=== PATIENT | female | born 1935 | race Caucasian/White ===

== ENCOUNTER 2017-04-22 20:50 | Inpatient (IN) | payer MEDICARE, BC ==
[~2017-04-22] VITALS: Ht 154.9 cm; Wt 51.7 kg
[~2017-04-22 20:50] MED LIST: ASPI81TA31 PO; ATOR80TA PO; CHOL200026 PO; HYDR-3974 PO; HYDR-4209 PO; LEVE750T4 PO; LISI-607 PO; LORA-588 PO; MELA3TAB PO; MULT1TAB11 PO; PROP15DR OP
[2017-04-22 21:16] LABS: BASOPHILS % (AUTO) 0.7 % (0.0-2.0); EOSINOPHILS % (AUTO) 0.8 % (0.0-7.0); HEMATOCRIT 37.8 % (31.2-41.9); HEMOGLOBIN 12.7 g/dL (10.9-14.3); LYMPHOCYTES # (AUTO) 2.9 K/uL (20.0-40.0); LYMPHOCYTES % (AUTO) 48.6 % (20.5-51.5); MEAN CORPUSCULAR HEMOGLOBIN 32.1 uug (24.7-32.8); MEAN CORPUSCULAR HGB CONC 34 g/dL (32.3-35.6); MEAN CORPUSCULAR VOLUME 95.8 fL (75.5-95.3); MONOCYTES # (AUTO) 0.5 K/uL (2.0-10.0); MONOCYTES % (AUTO) 9.1 % (0.0-11.0); NEUTROPHILS # (AUTO) 2.4 K/uL (1.8-8.9); NEUTROPHILS % (AUTO) 40.8 % (38.5-71.5); PLATELET COUNT (AUTO) 133 K/uL (179-408); RED BLOOD CELL COUNT(AUTO) 3.95 MIL/uL (3.63-4.92)
[2017-04-22 21:25] LABS: CARBON DIOXIDE 28 mmol/L (21-32); CHLORIDE 103 mmol/L (98-107); CREATININE 0.9 mg/dL (0.6-1.3); GLUCOSE 96 mg/dL (74-106); POTASSIUM 3.7 mmol/L (3.5-5.1); UREA NITROGEN, BLOOD 13 mg/dL (7-18)
[2017-04-22 21:33] LABS: ETHANOL < 3 MG/DL (0-0)
[2017-04-22] MEDS ORDERED: VENL150C2 PO (21:36)
[2017-04-22] MEDS ORDERED: DIVA250T47 PO (21:36)
[2017-04-22] MEDS ORDERED: ACET325T53 PO (21:36)
[2017-04-22] MEDS ORDERED: MAG355OR18 PO (21:36)
[2017-04-22] MEDS ORDERED: DEXT15DR6 OP (21:36)
[2017-04-22] MEDS ORDERED: BISA10SU8 RC (21:36)
[2017-04-22] MEDS ORDERED: MAGN400O6 PO (21:36)
[2017-04-22] MEDS ORDERED: DOCU-141 PO (21:36)
[2017-04-22] MEDS ORDERED: SENN-167 PO (21:36)
[2017-04-22] MEDS ORDERED: LORA-258 PO (21:36)
[2017-04-22] MEDS ORDERED: MEMA10TA PO (21:36)
[2017-04-22] MEDS ORDERED: POLY17PO4 PO (21:36)
[2017-04-22 21:42] LABS: ACETAMINOPHEN < 2.0 ug/mL (10-30); ALANINE AMINOTRANSFERASE 19 U/L (14-59); ALKALINE PHOSPHATASE 71 U/L (50-136); ASPARTATE AMINOTRANSFERASE 15 U/L (15-37); BILIRUBIN,DIRECT 0.1 mg/dL (0.0-0.2); BILIRUBIN,TOTAL 0.4 mg/dL (0.2-1.0); TOTAL PROTEIN, SERUM 6.6 g/dL (6.4-8.2)
[2017-04-22 21:51] LABS: *BILIRUBIN,URIN NEGATIVE (NEGATIVE); *BLOOD, URINE NEGATIVE (NEGATIVE); *CLARITY,URINE CLEAR (CLEAR); *COLOR,URINE YELLOW (YELLOW); *KETONES,URINE NEGATIVE (NEGATIVE); *PROTEIN,URINE NEGATIVE (NEGATIVE); *UROBILINOGEN,URINE 0.2 E.U./dl (NORMAL); LEUKOCYTE ESTERASE ,URINE NEGATIVE (NEGATIVE); NITRITE, URINE NEGATIVE (NEGATIVE); PH,URINE 8.5 (5.0-8.0); UGLUCOSE NEGATIVE (NEGATIVE)
[2017-04-22 21:57] LABS: THYROID STIMULATING HORMONE 5.919 mIU/mL (0.358-3.740)
[2017-04-22 21:58] LABS: RBC,URINE 0-3 /HPF (0-3); SQUAMOUS EPITHELIAL CELL,UR FEW /HPF (NONE SEEN); WBC,URINE 0-3 /HPF (0-3)
[2017-04-22 22:04] LABS: *AMPHETAMINE, URINE NEGATIVE (NEGATIVE); *BARBITURATE, URINE NEGATIVE (NEGATIVE); *CANNABINOID, URINE NEGATIVE (NEGATIVE); *COCCAINE, URINE NEGATIVE (NEGATIVE); *OPIATE, URINE NEGATIVE (NEGATIVE); *PHENCYCLIDINE SCREEN,URINE NEGATIVE (NEGATIVE)
[2017-04-22 22:52] VITALS: BP 141/73
[2017-04-22] MEDS ORDERED: MAGNESIUM HYDROXIDE 30 ML LIQUID UDC PO PRN (23:00)
[2017-04-22] MEDS ORDERED: MAG HYDROX/AL HYDROX/SIMETH 30 ML LIQUID UDC PO PRN (23:00)
[2017-04-23 01:48] VITALS: BP 141/73
[2017-04-23 07:30] VITALS: BP 145/82
[2017-04-23] MEDS: LORAZEPAM 0.5 MG TABLET PO PRN (10:46)
[2017-04-23] MEDS: ESCITALOPRAM OXALATE 10 MG TABLET PO SCH (15:33)
[2017-04-23] MEDS ORDERED: Medication Not On Formulary EA (Loratadine 10 MG) PO PRN (16:15)
[2017-04-23] MEDS ORDERED: ACETAMINOPHEN 325 MG TABLET PO PRN (16:15)
[2017-04-23] MEDS ORDERED: MAG HYDROX/AL HYDROX/SIMETH 30 ML LIQUID UDC PO PRN (16:15)
[2017-04-23] MEDS ORDERED: MAGNESIUM HYDROXIDE 30 ML LIQUID UDC PO PRN (16:15)
[2017-04-23] MEDS ORDERED: BISACODYL 10 MG SUPP.RECT RC PRN (16:15)
[2017-04-23 16:17] VITALS: BP 140/75
[2017-04-23] MEDS: VENLAFAXINE XR 37.5 MG CAP.SR.24H PO SCH (16:53)
[2017-04-23] MEDS: busPIRone 5 MG TABLET PO SCH (16:53)
[2017-04-23] MEDS: BENZTROPINE MESYLATE 0.5 MG TABLET PO SCH (16:54)
[2017-04-23] MEDS ORDERED: LORATADINE 10 MG TABLET PO PRN (17:30)
[2017-04-23] MEDS: DOCUSATE SODIUM 100 MG CAPSULE PO SCH (17:37)
[2017-04-23] MEDS: SENNOSIDES 1 TABLET PO SCH (17:37)
[2017-04-23] MEDS: ARIPIPRAZOLE 2 MG TABLET PO SCH (20:41)
[2017-04-23] MEDS: ATORVASTATIN 40 MG TABLET PO SCH (20:42)
[2017-04-23] MEDS ORDERED: Medication Not On Formulary EA (Atorvastatin Calcium (Lipitor) 80 MG) PO SCH (21:00)
[2017-04-23 21:09] VITALS: BP 113/52
[2017-04-24] MEDS: BENZTROPINE MESYLATE 0.5 MG TABLET PO SCH ×2 (08:08→16:16)
[2017-04-24] MEDS: busPIRone 5 MG TABLET PO SCH ×4 (08:08→16:16)
[2017-04-24] MEDS: DOCUSATE SODIUM 100 MG CAPSULE PO SCH ×2 (08:08→16:16)
[2017-04-24] MEDS: CHOLECALCIFEROL 1,000 UNIT TABLET PO SCH (08:08)
[2017-04-24] MEDS: LISINOPRIL 5 MG TABLET PO SCH (08:09)
[2017-04-24] MEDS: MIRALAX 17 GM POWD.PACK PO SCH (08:09)
[2017-04-24] MEDS: ESCITALOPRAM OXALATE 10 MG TABLET PO SCH (08:09)
[2017-04-24] MEDS: POLYVINYL ALCOHOL OPHT DROPS 15 ML BOTTLE EACHEYE SCH ×2 (08:09→16:16)
[2017-04-24] MEDS: VENLAFAXINE XR 37.5 MG CAP.SR.24H PO SCH (08:09)
[2017-04-24] MEDS: MULTIVIT, IRON, MIN NO. 8, FA TABLET PO SCH (08:09)
[2017-04-24] MEDS: SENNOSIDES 1 TABLET PO SCH ×2 (08:09→16:16)
[2017-04-24] MEDS ORDERED: Medication Not On Formulary EA (Cholecalciferol (Vitamin D3) (Vitamin D3 TAB) 2,000 UNIT PO SCH (09:00)
[2017-04-24] MEDS ORDERED: Medication Not On Formulary EA (Multivitamins W-Minerals (Multivitamin With Minerals) 1 PO SCH (09:00)
[2017-04-24] MEDS: LORAZEPAM 0.5 MG TABLET PO PRN (13:45)
[2017-04-24] MEDS: HYDROCODONE/APAP 5-325MG TABLET PO PRN (14:36)
[2017-04-24] MEDS: ATORVASTATIN 40 MG TABLET PO SCH (20:02)
[2017-04-24] MEDS: ARIPIPRAZOLE 2 MG TABLET PO SCH (20:02)
[2017-04-24 21:50] VITALS: BP 129/67
[2017-04-25 07:30] VITALS: BP 172/69
[2017-04-25] MEDS: DOCUSATE SODIUM 100 MG CAPSULE PO SCH ×2 (08:37→17:03)
[2017-04-25] MEDS: CHOLECALCIFEROL 1,000 UNIT TABLET PO SCH (08:37)
[2017-04-25] MEDS: VENLAFAXINE XR 37.5 MG CAP.SR.24H PO SCH (08:38)
[2017-04-25] MEDS: MULTIVIT, IRON, MIN NO. 8, FA TABLET PO SCH (08:38)
[2017-04-25] MEDS: LISINOPRIL 5 MG TABLET PO SCH (08:38)
[2017-04-25] MEDS: SENNOSIDES 1 TABLET PO SCH ×2 (08:38→17:03)
[2017-04-25] MEDS: ESCITALOPRAM OXALATE 10 MG TABLET PO SCH (08:38)
[2017-04-25] MEDS: BENZTROPINE MESYLATE 0.5 MG TABLET PO SCH ×2 (08:38→17:03)
[2017-04-25] MEDS: busPIRone 5 MG TABLET PO SCH ×3 (08:38→17:02)
[2017-04-25] MEDS: POLYVINYL ALCOHOL OPHT DROPS 15 ML BOTTLE EACHEYE SCH ×2 (08:39→17:00)
[2017-04-25] MEDS: MIRALAX 17 GM POWD.PACK PO SCH (08:40)
[2017-04-25 15:00] VITALS: BP 150/65
[2017-04-25] MEDS: LORAZEPAM 0.5 MG TABLET PO PRN (16:48)
[2017-04-25] MEDS: ACETAMINOPHEN 325 MG TABLET PO PRN (17:03)
[2017-04-25] MEDS: ATORVASTATIN 40 MG TABLET PO SCH (20:08)
[2017-04-25] MEDS: ARIPIPRAZOLE 2 MG TABLET PO SCH (20:08)
[2017-04-25 20:13] VITALS: BP 132/67
[2017-04-26 07:30] VITALS: BP 135/56
[2017-04-26] MEDS: VENLAFAXINE XR 37.5 MG CAP.SR.24H PO SCH (08:13)
[2017-04-26] MEDS: LISINOPRIL 5 MG TABLET PO SCH (08:14)
[2017-04-26] MEDS: SENNOSIDES 1 TABLET PO SCH ×2 (08:14→17:12)
[2017-04-26] MEDS: CHOLECALCIFEROL 1,000 UNIT TABLET PO SCH (08:14)
[2017-04-26] MEDS: MULTIVIT, IRON, MIN NO. 8, FA TABLET PO SCH (08:14)
[2017-04-26] MEDS: ESCITALOPRAM OXALATE 10 MG TABLET PO SCH (08:14)
[2017-04-26] MEDS: DOCUSATE SODIUM 100 MG CAPSULE PO SCH ×2 (08:14→17:13)
[2017-04-26] MEDS: busPIRone 5 MG TABLET PO SCH ×3 (08:14→17:12)
[2017-04-26] MEDS: BENZTROPINE MESYLATE 0.5 MG TABLET PO SCH ×2 (08:14→17:13)
[2017-04-26] MEDS: POLYVINYL ALCOHOL OPHT DROPS 15 ML BOTTLE EACHEYE SCH ×2 (08:15→17:13)
[2017-04-26] MEDS: MIRALAX 17 GM POWD.PACK PO SCH (08:15)
[2017-04-26] MEDS: LORAZEPAM 0.5 MG TABLET PO PRN ×2 (12:15→20:27)
[2017-04-26 16:24] VITALS: BP 143/54
[2017-04-26] MEDS: ACETAMINOPHEN 325 MG TABLET PO PRN (17:12)
[2017-04-26] MEDS: ARIPIPRAZOLE 2 MG TABLET PO SCH (20:27)
[2017-04-26] MEDS: ATORVASTATIN 40 MG TABLET PO SCH (20:27)
[2017-04-26 20:48] VITALS: BP 147/58
[2017-04-27] MEDS: TEMAZEPAM 7.5 MG CAPSULE PO PRN (00:36)
[2017-04-27 07:30] VITALS: BP 161/62
[2017-04-27] MEDS: VENLAFAXINE XR 37.5 MG CAP.SR.24H PO SCH (08:49)
[2017-04-27] MEDS: DOCUSATE SODIUM 100 MG CAPSULE PO SCH ×2 (08:49→17:15)
[2017-04-27] MEDS: BENZTROPINE MESYLATE 0.5 MG TABLET PO SCH ×2 (08:50→17:15)
[2017-04-27] MEDS: MULTIVIT, IRON, MIN NO. 8, FA TABLET PO SCH (08:50)
[2017-04-27] MEDS: MIRALAX 17 GM POWD.PACK PO SCH (08:50)
[2017-04-27] MEDS: busPIRone 5 MG TABLET PO SCH ×3 (08:50→17:15)
[2017-04-27] MEDS: SENNOSIDES 1 TABLET PO SCH ×2 (08:50→17:15)
[2017-04-27] MEDS: CHOLECALCIFEROL 1,000 UNIT TABLET PO SCH (08:50)
[2017-04-27] MEDS: LISINOPRIL 5 MG TABLET PO SCH (08:50)
[2017-04-27] MEDS: ESCITALOPRAM OXALATE 10 MG TABLET PO SCH (08:50)
[2017-04-27] MEDS: POLYVINYL ALCOHOL OPHT DROPS 15 ML BOTTLE EACHEYE SCH ×2 (08:51→17:15)
[2017-04-27] MEDS: LORAZEPAM 0.5 MG TABLET PO PRN (12:55)
[2017-04-27 17:02] VITALS: BP 130/65
[2017-04-27 19:45] VITALS: BP 115/58
[2017-04-27] MEDS: ATORVASTATIN 40 MG TABLET PO SCH (20:35)
[2017-04-27] MEDS: ARIPIPRAZOLE 2 MG TABLET PO SCH (20:35)
[2017-04-28 07:44] VITALS: BP 151/69
[2017-04-28] MEDS: SENNOSIDES 1 TABLET PO SCH ×2 (08:13→17:06)
[2017-04-28] MEDS: MULTIVIT, IRON, MIN NO. 8, FA TABLET PO SCH (08:13)
[2017-04-28] MEDS: DOCUSATE SODIUM 100 MG CAPSULE PO SCH ×2 (08:13→17:06)
[2017-04-28] MEDS: BENZTROPINE MESYLATE 0.5 MG TABLET PO SCH (08:13)
[2017-04-28] MEDS: CHOLECALCIFEROL 1,000 UNIT TABLET PO SCH (08:13)
[2017-04-28] MEDS: busPIRone 5 MG TABLET PO SCH ×3 (08:13→17:07)
[2017-04-28] MEDS: LISINOPRIL 5 MG TABLET PO SCH (08:15)
[2017-04-28] MEDS: MIRALAX 17 GM POWD.PACK PO SCH (08:15)
[2017-04-28] MEDS: POLYVINYL ALCOHOL OPHT DROPS 15 ML BOTTLE EACHEYE SCH ×2 (08:19→17:07)
[2017-04-28] MEDS ORDERED: ESCITALOPRAM OXALATE 10 MG TABLET PO SCH (09:00)
[2017-04-28] MEDS: VENLAFAXINE XR 37.5 MG CAP.SR.24H PO SCH (11:56)
[2017-04-28] MEDS: LORAZEPAM 0.5 MG TABLET PO SCH ×2 (11:56→17:06)
[2017-04-28 16:38] VITALS: BP 155/77
[2017-04-28] MEDS: HYDROCODONE/APAP 5-325MG TABLET PO PRN (17:06)
[2017-04-28] MEDS: ATORVASTATIN 40 MG TABLET PO SCH (20:29)
[2017-04-28 20:45] VITALS: BP 118/62
[2017-04-29 07:06] LABS: BASOPHILS % (AUTO) 0.7 % (0.0-2.0); CARBON DIOXIDE 26 mmol/L (21-32); CHLORIDE 104 mmol/L (98-107); CREATININE 0.7 mg/dL (0.6-1.3); EOSINOPHILS # (AUTO) 0.1 K/uL (0.0-0.7); GLUCOSE 122 mg/dL (74-106); HEMATOCRIT 35.8 % (31.2-41.9); HEMOGLOBIN 12.3 g/dL (10.9-14.3); LYMPHOCYTES # (AUTO) 1.6 K/uL (20.0-40.0); LYMPHOCYTES % (AUTO) 38.5 % (20.5-51.5); MEAN CORPUSCULAR HEMOGLOBIN 32.9 uug (24.7-32.8); MEAN CORPUSCULAR HGB CONC 34 g/dL (32.3-35.6); MEAN CORPUSCULAR VOLUME 96.1 fL (75.5-95.3); MONOCYTES # (AUTO) 0.5 K/uL (2.0-10.0); MONOCYTES % (AUTO) 12.6 % (0.0-11.0); NEUTROPHILS # (AUTO) 1.9 K/uL (1.8-8.9); NEUTROPHILS % (AUTO) 46.2 % (38.5-71.5); PLATELET COUNT (AUTO) 126 K/uL (179-408); POTASSIUM 3.8 mmol/L (3.5-5.1); RED BLOOD CELL COUNT(AUTO) 3.72 MIL/uL (3.63-4.92); UREA NITROGEN, BLOOD 12 mg/dL (7-18); WHITE BLOOD COUNT (AUTO) 4.1 K/uL (3.8-11.8)
[2017-04-29 07:27] LABS: THYROID STIMULATING HORMONE 4.172 mIU/mL (0.358-3.740)
[2017-04-29 08:00] VITALS: BP 130/64
[2017-04-29] MEDS: MIRALAX 17 GM POWD.PACK PO SCH ×2 (09:00→09:09)
[2017-04-29] MEDS: CHOLECALCIFEROL 1,000 UNIT TABLET PO SCH (09:09)
[2017-04-29] MEDS: DOCUSATE SODIUM 100 MG CAPSULE PO SCH ×2 (09:09→17:47)
[2017-04-29] MEDS: SENNOSIDES 1 TABLET PO SCH ×2 (09:10→17:47)
[2017-04-29] MEDS: VENLAFAXINE XR 37.5 MG CAP.SR.24H PO SCH (09:10)
[2017-04-29] MEDS: MULTIVIT, IRON, MIN NO. 8, FA TABLET PO SCH (09:10)
[2017-04-29] MEDS: LISINOPRIL 5 MG TABLET PO SCH (09:10)
[2017-04-29] MEDS: ESCITALOPRAM OXALATE 10 MG TABLET PO SCH (09:11)
[2017-04-29] MEDS: LORAZEPAM 0.5 MG TABLET PO SCH ×2 (09:11→17:46)
[2017-04-29] MEDS: busPIRone 5 MG TABLET PO SCH ×3 (09:11→17:47)
[2017-04-29] MEDS: POLYVINYL ALCOHOL OPHT DROPS 15 ML BOTTLE EACHEYE SCH ×2 (10:33→17:46)
[2017-04-29] MEDS ORDERED: VENLAFAXINE XR 37.5 MG CAP.SR.24H PO SCH (13:30)
[2017-04-29] MEDS ORDERED: QUETIAPINE FUMARATE 25 MG TABLET PO PRN (13:30)
[2017-04-29 16:00] VITALS: BP 137/71
[2017-04-29 19:58] VITALS: BP 116/60
[2017-04-29] MEDS: ATORVASTATIN 40 MG TABLET PO SCH (21:10)
[2017-04-29] MEDS: HYDROCODONE/APAP 5-325MG TABLET PO PRN (21:13)
[2017-04-29] MEDS: TEMAZEPAM 7.5 MG CAPSULE PO PRN (21:14)
[2017-04-30 07:30] VITALS: BP 124/66
[2017-04-30] MEDS: MULTIVIT, IRON, MIN NO. 8, FA TABLET PO SCH (08:44)
[2017-04-30] MEDS: CHOLECALCIFEROL 1,000 UNIT TABLET PO SCH (08:44)
[2017-04-30] MEDS: ESCITALOPRAM OXALATE 10 MG TABLET PO SCH (08:44)
[2017-04-30] MEDS: DOCUSATE SODIUM 100 MG CAPSULE PO SCH ×2 (08:45→17:31)
[2017-04-30] MEDS: LISINOPRIL 5 MG TABLET PO SCH (08:45)
[2017-04-30] MEDS: SENNOSIDES 1 TABLET PO SCH ×2 (08:45→17:31)
[2017-04-30] MEDS: busPIRone 5 MG TABLET PO SCH ×3 (08:45→17:31)
[2017-04-30] MEDS: MIRALAX 17 GM POWD.PACK PO SCH (08:45)
[2017-04-30] MEDS: LORAZEPAM 0.5 MG TABLET PO SCH ×3 (08:46→17:31)
[2017-04-30] MEDS: POLYVINYL ALCOHOL OPHT DROPS 15 ML BOTTLE EACHEYE SCH ×2 (08:46→17:33)
[2017-04-30 15:00] VITALS: BP 127/71
[2017-04-30] MEDS: HYDROCODONE/APAP 5-325MG TABLET PO PRN (15:30)
[2017-04-30] MEDS: DULOXETINE 30 MG CAPSULE.DR PO SCH (17:31)
[2017-04-30 20:01] VITALS: BP 128/62
[2017-04-30] MEDS: ACETAMINOPHEN 325 MG TABLET PO PRN (20:10)
[2017-04-30] MEDS: ATORVASTATIN 40 MG TABLET PO SCH (20:10)
[2017-04-30] MEDS: TEMAZEPAM 7.5 MG CAPSULE PO PRN (21:29)
[2017-05-01] MEDS: HYDROCODONE/APAP 5-325MG TABLET PO PRN ×3 (03:30→18:05)
[2017-05-01 07:30] VITALS: BP 126/61
[2017-05-01] MEDS: POLYVINYL ALCOHOL OPHT DROPS 15 ML BOTTLE EACHEYE SCH ×2 (08:23→16:52)
[2017-05-01] MEDS: LISINOPRIL 5 MG TABLET PO SCH (08:24)
[2017-05-01] MEDS: CHOLECALCIFEROL 1,000 UNIT TABLET PO SCH (08:24)
[2017-05-01] MEDS: MIRALAX 17 GM POWD.PACK PO SCH (08:24)
[2017-05-01] MEDS: DOCUSATE SODIUM 100 MG CAPSULE PO SCH ×2 (08:24→16:53)
[2017-05-01] MEDS: SENNOSIDES 1 TABLET PO SCH ×2 (08:24→16:53)
[2017-05-01] MEDS: busPIRone 5 MG TABLET PO SCH ×3 (08:24→16:52)
[2017-05-01] MEDS: ESCITALOPRAM OXALATE 10 MG TABLET PO SCH (08:24)
[2017-05-01] MEDS: MULTIVIT, IRON, MIN NO. 8, FA TABLET PO SCH (08:25)
[2017-05-01] MEDS: LORAZEPAM 0.5 MG TABLET PO SCH ×3 (08:45→16:52)
[2017-05-01] MEDS: DULOXETINE 30 MG CAPSULE.DR PO SCH (16:52)
[2017-05-01 20:12] VITALS: BP 149/70
[2017-05-01] MEDS: ATORVASTATIN 40 MG TABLET PO SCH (20:20)
[2017-05-01] MEDS: QUETIAPINE FUMARATE 25 MG TABLET PO SCH (20:20)
[2017-05-01] MEDS: TEMAZEPAM 7.5 MG CAPSULE PO PRN (21:22)
[2017-05-02 07:30] VITALS: BP 139/60
[2017-05-02] MEDS: POLYVINYL ALCOHOL OPHT DROPS 15 ML BOTTLE EACHEYE SCH ×2 (08:27→16:57)
[2017-05-02] MEDS: CHOLECALCIFEROL 1,000 UNIT TABLET PO SCH (08:27)
[2017-05-02] MEDS: LORAZEPAM 0.5 MG TABLET PO SCH ×3 (08:28→16:56)
[2017-05-02] MEDS: MULTIVIT, IRON, MIN NO. 8, FA TABLET PO SCH (08:28)
[2017-05-02] MEDS: DOCUSATE SODIUM 100 MG CAPSULE PO SCH ×2 (08:28→16:56)
[2017-05-02] MEDS: busPIRone 5 MG TABLET PO SCH ×3 (08:28→16:56)
[2017-05-02] MEDS: ESCITALOPRAM OXALATE 10 MG TABLET PO SCH (08:28)
[2017-05-02] MEDS: SENNOSIDES 1 TABLET PO SCH ×2 (08:29→16:57)
[2017-05-02] MEDS: MIRALAX 17 GM POWD.PACK PO SCH (08:29)
[2017-05-02] MEDS: LISINOPRIL 5 MG TABLET PO SCH (08:29)
[2017-05-02] MEDS: HYDROCODONE/APAP 5-325MG TABLET PO PRN ×2 (11:27→17:42)
[2017-05-02 15:13] VITALS: BP 131/73
[2017-05-02] MEDS: DULOXETINE 30 MG CAPSULE.DR PO SCH (16:56)
[2017-05-02] MEDS: ATORVASTATIN 40 MG TABLET PO SCH (20:05)
[2017-05-02] MEDS: QUETIAPINE FUMARATE 25 MG TABLET PO SCH (20:06)
[2017-05-02 20:34] VITALS: BP 107/53
[2017-05-02] MEDS: TEMAZEPAM 7.5 MG CAPSULE PO PRN (23:45)
[2017-05-03] MEDS: HYDROCODONE/APAP 5-325MG TABLET PO PRN ×3 (03:17→18:24)
[2017-05-03 07:30] VITALS: BP 130/70
[2017-05-03] MEDS: SENNOSIDES 1 TABLET PO SCH ×2 (08:26→16:24)
[2017-05-03] MEDS: ESCITALOPRAM OXALATE 10 MG TABLET PO SCH (08:26)
[2017-05-03] MEDS: CHOLECALCIFEROL 1,000 UNIT TABLET PO SCH (08:26)
[2017-05-03] MEDS: busPIRone 5 MG TABLET PO SCH ×3 (08:26→16:24)
[2017-05-03] MEDS: LORAZEPAM 0.5 MG TABLET PO SCH ×3 (08:26→16:25)
[2017-05-03] MEDS: LISINOPRIL 5 MG TABLET PO SCH (08:27)
[2017-05-03] MEDS: DOCUSATE SODIUM 100 MG CAPSULE PO SCH ×2 (08:27→16:24)
[2017-05-03] MEDS: MIRALAX 17 GM POWD.PACK PO SCH (08:27)
[2017-05-03] MEDS: MULTIVIT, IRON, MIN NO. 8, FA TABLET PO SCH (08:27)
[2017-05-03] MEDS: POLYVINYL ALCOHOL OPHT DROPS 15 ML BOTTLE EACHEYE SCH ×2 (08:31→16:26)
[2017-05-03 16:00] VITALS: BP 141/59
[2017-05-03] MEDS: DULOXETINE 30 MG CAPSULE.DR PO SCH (16:24)
[2017-05-03 19:57] VITALS: BP 128/53
[2017-05-03] MEDS: QUETIAPINE FUMARATE 25 MG TABLET PO SCH (20:50)
[2017-05-03] MEDS: ATORVASTATIN 40 MG TABLET PO SCH (20:51)
[2017-05-04 07:30] VITALS: BP 113/62
[2017-05-04] MEDS: CHOLECALCIFEROL 1,000 UNIT TABLET PO SCH (08:10)
[2017-05-04] MEDS: ESCITALOPRAM OXALATE 10 MG TABLET PO SCH (08:10)
[2017-05-04] MEDS: SENNOSIDES 1 TABLET PO SCH (08:10)
[2017-05-04] MEDS: busPIRone 5 MG TABLET PO SCH ×2 (08:10→12:24)
[2017-05-04] MEDS: LORAZEPAM 0.5 MG TABLET PO SCH ×2 (08:10→12:24)
[2017-05-04] MEDS: MIRALAX 17 GM POWD.PACK PO SCH (08:10)
[2017-05-04] MEDS: MULTIVIT, IRON, MIN NO. 8, FA TABLET PO SCH (08:10)
[2017-05-04] MEDS: DOCUSATE SODIUM 100 MG CAPSULE PO SCH (08:10)
[2017-05-04 08:11] VITALS: BP 113/62
[2017-05-04] MEDS: LISINOPRIL 5 MG TABLET PO SCH (08:11)
[2017-05-04] MEDS: POLYVINYL ALCOHOL OPHT DROPS 15 ML BOTTLE EACHEYE SCH (08:11)
== END 2017-05-04 15:00 | DRG 885 ==
LOC: ER 20:51 → GPS 21:58
PROVIDERS: ADMIT Psychiatry & Neurology Psychosomatic Medicine; ATTEND Nurse Practitioner Acute Care
DX: F32.3 Major depressive disorder, single episode, severe with psychotic features (principal); D69.6 Thrombocytopenia, unspecified; F03.90 Unspecified dementia, unspecified severity, without behavioral disturbance, psychotic disturbance, mood disturbance, and anxiety; G40.909 Epilepsy, unspecified, not intractable, without status epilepticus; Z79.82 Long term (current) use of aspirin; Z96.651 Presence of right artificial knee joint; Z79.899 Other long term (current) drug therapy; F41.9 Anxiety disorder, unspecified; E78.5 Hyperlipidemia, unspecified; G89.29 Other chronic pain; M54.9 Dorsalgia, unspecified; M17.12 Unilateral primary osteoarthritis, left knee; F42.9 Obsessive-compulsive disorder, unspecified; I10 Essential (primary) hypertension; R25.1 Tremor, unspecified
CPT/HCPCS: 36415; 70030-TC; 70450; 71045; 80164; 80307; 84443; 85025; 85730; 87086; 93005; A4663; G0480; G0480-TC

== ENCOUNTER 2020-08-30 23:18 | Inpatient (IN) | payer MEDICARE, OTHER ==
[~2020-08-30] VITALS: Ht 157.5 cm; Wt 43.1 kg
[~2020-08-30 23:18] MED LIST changes: +ACET-73 PO; +ACET325T53 PO; -ASPI81TA31 PO; +CARB-299 PO; +CYAN10009 PO; +DEXT15DR6 OP; +DOCU-141 PO; +GABA-534 PO; -HYDR-3974 PO; -HYDR-4209 PO; +LEVE500T9 PO; -LEVE750T4 PO; -LISI-607 PO; +LISI20TA30 PO; -LORA-588 PO; +MAGN400O6 PO; -MELA3TAB PO; +MEMA10TA PO; -PROP15DR OP; +SENN-261 PO
[2020-08-30] MEDS ORDERED: IV NORMAL SALINE 1000 ML BAG IV ONE (23:45)
[2020-08-30] MEDS ORDERED: HALOPERIDOL LACTATE 5 MG/1 ML VIAL IM ONE (23:45)
[2020-08-30] MEDS ORDERED: LORAZEPAM 2 MG/1 ML VIAL IM ONE (23:45)
[2020-08-30] MEDS ORDERED: diphenhydrAMINE 50 MG/1 ML VIAL IM ONE (23:45)
[2020-08-30] MEDS ORDERED: diphenhydrAMINE 50 MG/1 ML VIAL ONE (23:47)
[2020-08-30] MEDS ORDERED: HALOPERIDOL LACTATE 5 MG/1 ML VIAL ONE (23:47)
[2020-08-30] MEDS ORDERED: LORAZEPAM 2 MG/1 ML VIAL ONE (23:48)
[2020-08-30 23:56] LABS: HEMATOCRIT 32.6 % (31.2-41.9); MEAN CORPUSCULAR HEMOGLOBIN 30.4 uug (24.7-32.8); MEAN CORPUSCULAR VOLUME 93.8 fL (75.5-95.3); PLATELET COUNT (AUTO) 216 K/uL (179-408)
[2020-08-31 00:03] LABS: CARBON DIOXIDE 24 mmol/L (21-32); CHLORIDE 112 mmol/L (98-107); GLUCOSE 128 mg/dL (74-106); POTASSIUM 3.6 mmol/L (3.5-5.1); UREA NITROGEN, BLOOD 37 mg/dL (7-18)
[2020-08-31 00:04] LABS: ETHANOL < 3 MG/DL (0-0)
[2020-08-31 00:08] LABS: ALANINE AMINOTRANSFERASE 16 U/L (14-59); ALKALINE PHOSPHATASE 63 U/L (50-136); ASPARTATE AMINOTRANSFERASE 10 U/L (15-37); BILIRUBIN,DIRECT 0.2 mg/dL (0.0-0.2); BILIRUBIN,TOTAL 0.9 mg/dL (0.2-1.0)
[2020-08-31 00:10] LABS: ACETAMINOPHEN < 2.0 ug/mL (10-30)
[2020-08-31 00:23] LABS: *BILIRUBIN,URIN 1+ (NEGATIVE); *COLOR,URINE YELLOW (YELLOW); *KETONES,URINE TRACE (NEGATIVE); *UROBILINOGEN,URINE 0.2 E.U./dl (NORMAL); LEUKOCYTE ESTERASE ,URINE TRACE (NEGATIVE); NITRITE, URINE NEGATIVE (NEGATIVE); PH,URINE 5.5 (5.0-8.0); UGLUCOSE NEGATIVE (NEGATIVE)
[2020-08-31 00:36] LABS: *BLOOD, URINE TRACE (NEGATIVE); *CLARITY,URINE HAZY (CLEAR)
[2020-08-31 00:37] LABS: BACTERIA,URINE FEW /HPF (NONE SEEN); RBC,URINE 0-3 /HPF (0-3); SQUAMOUS EPITHELIAL CELL,UR MODERATE /HPF (NONE SEEN)
--- NOTE | 2020-08-31 00:39 | NUR ---
Patient is medically cleared by Dr. Jesus.
--- NOTE | 2020-08-31 00:44 | NUR ---
radiography technician Brian called to inform COVID AG test on patient is negative. MD Jesus made aware.
[2020-08-31 00:47] LABS: *AMPHETAMINE, URINE NEGATIVE (NEGATIVE); *CANNABINOID, URINE NEGATIVE (NEGATIVE); *COCCAINE, URINE NEGATIVE (NEGATIVE); *OPIATE, URINE NEGATIVE (NEGATIVE); *PHENCYCLIDINE SCREEN,URINE NEGATIVE (NEGATIVE)
--- NOTE | 2020-08-31 01:09 | NUR ---
Per MHU, no beds available at this time.
--- NOTE | 2020-08-31 01:52 | NUR ---
Spoke with loader malt house, pt will be going to [facility] before 0330.
[2020-08-31] MEDS ORDERED: IV NS 1000 ML 1,000 ML IV ONE (02:30)
[2020-08-31] MEDS ORDERED: CEFTRIAXONE 1 G in IV DEXTROSE 5% 50 ML IV ONE (02:30)
[2020-08-31] MEDS ORDERED: CEFTRIAXONE /D5W 50ML IVPB **ER PYXIS IV ONE (02:38)
--- NOTE | 2020-08-31 03:18 | NUR ---
Pt. admitted to MHU Room 138B, under care of Dr. Alvarez/Dr. Rodriguez. Dx: 5150 Hold GD/DTS Belongs List completed. MRSA swab done
--- NOTE | 2020-08-31 03:24 | NUR ---
IV removed. Catheter intact and site benign. Pressure and 4x4 gauze applied to site. No bleeding noted.
[2020-08-31] MEDS ORDERED: MAGNESIUM HYDROXIDE 30 ML LIQUID UDC PO PRN (03:45)
[2020-08-31] MEDS ORDERED: MAG HYDROX/AL HYDROX/SIMETH 30 ML LIQUID UDC PO PRN (03:45)
[2020-08-31 04:00] VITALS: BP 152/43
--- NOTE | 2020-08-31 04:00 | NUR ---
84 y.o. female admitted to MHU accompanied by ER staff via zacheryrmaribel. Pt is on a 5150 for DTS and GD. Pt is under the care of Dr Alvarez and Dr adams, with a dx of Psychosis. Upon face to face assessment, Pt is unkempt and disheveled and appears garbled, pressured speech, unable to answer question during assessment. Pt is alert and oriented x1 to self, confused and disorganized, easily irritable, forgetful.Upon admission to the unit VS were stable and she denied pain. Body assessment completed. noted skin tear on left lower leg. Pt placed in clean hospital gown and pants. Pt has a known medical h/o biopolar,depression,anxiety. Dr Alvarez and Dr ADAMS notified of admission, orders received, meds reconciled. Covid test is negative. Belongings inventoried done. Pt was cognitively unable to sign paperwork.
--- NOTE | 2020-08-31 05:48 | NUR ---
GPS: Remain uncooperative with care. assisted with adl's. slept 1 hrs since 04.00 am. resting in bed comfortably. continue plan of care. bed alarm is on for safety.
[2020-08-31 07:30] VITALS: BP 149/69
--- NOTE | 2020-08-31 08:28 | NUR ---
Firearms Report: Cisco Network Architect completed and submitted a DOJ firearms report for 5150 grave disability certification. A copy of report has been placed in patient chart.
[2020-08-31] MEDS ORDERED: risperiDONE 0.25 MG TABLET PO SCH ×2 (09:00→21:00)
--- NOTE | 2020-08-31 09:47 | NUR ---
DIEGO Initial Discharge Plan: Patient is currently a resident at [facility] [address] [place] [address]; ). Per kris Adame greenhouse technician at facility, patient is welcomed back once ready for discharge. precision layout worker has left a voicemail with patient conservator, Selena Espinal ([phone]) and is awaiting return phone call. precision layout worker will continue to collaborate with conservator and MD on a safe and proper discharge of patient.
--- NOTE | 2020-08-31 09:47 | NUR ---
SW LPS Conservator Contact: This SW contacted patient's LPS conservator, Selena Espinal ([phone]) and left a voicemail to contact this SW to fax detain and treat.
--- NOTE | 2020-08-31 09:48 | NUR ---
Treatment Plan: Pt unable to sign treatment plan due to aggression and confusion.
--- NOTE | 2020-08-31 10:36 | NUR ---
Department of Mental Health: This SW spoke with Ana Maria Farooq ([phone]) who stated that in 2018 her case was discharged and it was assigned to an Plate Furnace Operator named Selena. Ana Maria gave Selena's direct number ([phone]). This SW contacted Selena ([phone]) and was unable to leave a voicemail due to mailbox being full.
[2020-08-31] MEDS: OXCARBAZEPINE 150 MG TABLET PO SCH ×2 (10:50→20:46)
[2020-08-31] MEDS: LORAZEPAM 0.5 MG TABLET PO PRN ×3 (10:50→23:12)
--- NOTE | 2020-08-31 11:20 | NUR ---
SW LPS Conservator Contact: This SW contacted patient's LPS conservator, Selena Espinal ([phone]) and discussed treatment and discharge plan. Selena stated she would want pt back to [facility]. This SW faxed patient's ([phone]) detain and treat. This SW requested conservatorship documents as well. Selena stated she will fax today.
--- NOTE | 2020-08-31 11:24 | NUR ---
Gps/Web Content Director- Suspicious, paranoid , staff putting something in her drinks/water, claimed it does not taste right. Juices opened in front of her . Constantly talking to herself, mumbles
--- NOTE | 2020-08-31 12:59 | NUR ---
LPS Conservatorship: This SW received pt's LPS conservatorship document from [facility] and this SW placed it in patient's chart.
--- NOTE | 2020-08-31 13:26 | NUR ---
Detain and Treat Placed in Chart: This SW received patient's detain and treat from pt's LPS conservator ([phone]) and this SW placed it in patient's chart.
[2020-08-31 16:24] VITALS: BP 162/75
--- NOTE | 2020-08-31 17:11 | NUR ---
Gps/B[employer] Quality Control Technician-Patient was very aggressive during her care, tries to bite and scratched staff. Difficulty redirecting patient, has poor insight. Loud , yells, perseverates , mumbles. Fluids offered and encouraged. Patient disrobing ,Poor safety judgement. Safety reviewed and emphasized.
[2020-08-31] MEDS: CEphaleXIN 500 MG CAPSULE PO SCH ×2 (17:27→21:06)
[2020-08-31 20:18] VITALS: BP 114/50
[2020-08-31] MEDS: BENZTROPINE MESYLATE 0.5 MG TABLET PO SCH (20:46)
[2020-08-31] MEDS: risperiDONE 0.5 MG TABLET PO SCH (20:46)
[2020-08-31] MEDS: ACETAMINOPHEN 325 MG TABLET PO PRN (23:56)
--- NOTE | 2020-09-01 00:43 | NUR ---
RECEIVED PATIENT IN BED SLEEPING INTERMITTENTLY. WOKE UP SHORTLY AFTER AND TRIED GETTING OUT OF BED SEVERAL TIMES. RE DIRECTED AND TAKEN TO THE BATHROOM. NOTED LOW ENERGY, CRYING SPELLS, MUMBLING TO HERSELF AND ASKING STAFF NOT TO 'ELECTRIC SHOCK" HER SHE HAS 'SYPHILIS".KEPT APOLOGIZING FOR SCRATCHING STAFF DURING THE DAY. POOR INSIGHT AND JUDGEMENT. LATER GIVEN SOME SNACKS AND TAB ATIVAN AT 23:10 WITH FAIRLY GOOD EFFECT. WILL CONTINUE TO MONITOR. SAFETY PRECAUTIONS IN PLACE.
[2020-09-01] MEDS: CEphaleXIN 500 MG CAPSULE PO SCH ×3 (06:26→21:15)
--- NOTE | 2020-09-01 06:52 | NUR ---
SHE SLEPT FOR 4:25 HOURS UP IN CHAIR AND GIVEN A BED BATH.
[2020-09-01 08:03] VITALS: BP 152/59
[2020-09-01] MEDS: LORAZEPAM 0.5 MG TABLET PO PRN (08:10)
[2020-09-01] MEDS: risperiDONE 0.5 MG TABLET PO SCH ×2 (09:00→21:15)
[2020-09-01] MEDS: OXCARBAZEPINE 150 MG TABLET PO SCH ×2 (09:00→21:15)
[2020-09-01 19:50] VITALS: BP 143/80
--- NOTE | 2020-09-01 20:30 | NUR ---
Received patient in her room in bed. She is noted awake A/O x 2. patient is able to verbalized feelings. She stated, "I AM sorry, I have been bad. I don't want to eat so I can soon ". Patient also stated, "I hear voces telling me that I am bad". "At [place], they want to hurt me". Patient noted tearful. She appears depressed, mood is low affect is blunted. Patient was reassured and redirected. She was able to verbally CFS. PO fluids and snacks were given. patient was able to drink 250ml of vanilla ensure and pudding. She is reassured for her safety. Safety and fall precaution in place. V/S stable, will continue to monitor.
[2020-09-01] MEDS: BENZTROPINE MESYLATE 0.5 MG TABLET PO SCH (21:15)
[2020-09-02] MEDS: TEMAZEPAM 7.5 MG CAPSULE PO PRN (00:16)
[2020-09-02] MEDS: CEphaleXIN 500 MG CAPSULE PO SCH ×3 (06:12→22:25)
[2020-09-02 07:30] VITALS: BP 147/72
[2020-09-02] MEDS: OXCARBAZEPINE 150 MG TABLET PO SCH ×2 (10:21→20:28)
[2020-09-02] MEDS: risperiDONE 0.5 MG TABLET PO SCH ×2 (10:22→20:28)
--- NOTE | 2020-09-02 12:46 | NUR ---
Gps.Clothespin Drier Operator- Unpredictable behavior, tends to scratched and grabs staff as they pass by., difficulty redirecting patient, assisted back to her liliana-chair, unable to keep patient in bed, attempting to get oob. incoherent speech Poor safety awareness, gets confused, , at times she thinks she is at [facility]. Constantly needing reorientation .
[2020-09-02] MEDS ORDERED: LORAZEPAM 2 MG/1 ML VIAL IM ONE (15:30)
[2020-09-02] MEDS ORDERED: HALOPERIDOL LACTATE 5 MG/1 ML VIAL IM ONE (15:30)
[2020-09-02 16:04] VITALS: BP 148/64
[2020-09-02] MEDS: LORAZEPAM 0.5 MG TABLET PO PRN ×2 (19:33→20:28)
[2020-09-02] MEDS: ACETAMINOPHEN 325 MG TABLET PO PRN (19:33)
[2020-09-02 20:00] VITALS: BP 126/55
[2020-09-02] MEDS: BENZTROPINE MESYLATE 0.5 MG TABLET PO SCH (20:28)
--- NOTE | 2020-09-02 20:30 | NUR ---
RECEIVED PATIENT IN THE HALLWAY SITTING IN A HUGO CHAIR. SHE WAS NOTED A/O X 2. YELLING A TIMES. "I NEED PAIN MEDICATION! I NEED TO GO TO MY ROOM, TAKE ME TO MY BED. IS IN 138B". PATIENT WAS REASSURED AND REDIRECTED. TYLENOL 650MG PO PRN GIVEN WELL ATIVAN 0.5MG PO PRN WAS GIVEN. SHE WAS ALSO GIVEN SNACKS, PO FLUIDS SUCH ENSURED, PATIENT NOTED WITH GOOD INTAKE. SHE WAS ABLE TO COMPLY WITH ALL HER [facility] MEDICATION REGIMENT. PATIENT CONTINUE HAVING SOME PASSIVE SI WITHOUT A PLAN OR INTENT. SHE IS ABLE TO VERBALLY CFS: SHE IS EATING AND DRINKING TAKING ALL HER MEDICATION AND SHE IS COMPLIANT WITH CARE AT THIS TIME. V/S STABLE. PATIENT IS REASSURED FOR HER SAFETY. SAFETY AND FALL PRECAUTION IN PLACE. WILL CONTINUE TO MONITOR.
[2020-09-03] MEDS: CEphaleXIN 500 MG CAPSULE PO SCH ×3 (06:00→22:44)
[2020-09-03] MEDS: LORAZEPAM 0.5 MG TABLET PO PRN (07:02)
[2020-09-03] MEDS: risperiDONE 0.5 MG TABLET PO SCH ×3 (09:29→20:29)
[2020-09-03] MEDS: OXCARBAZEPINE 150 MG TABLET PO SCH ×2 (09:29→20:29)
[2020-09-03] MEDS: BENZTROPINE MESYLATE 0.5 MG TABLET PO SCH ×2 (12:28→17:23)
[2020-09-04] MEDS: TEMAZEPAM 7.5 MG CAPSULE PO PRN ×3 (00:37→23:00)
[2020-09-04] MEDS: CEphaleXIN 500 MG CAPSULE PO SCH ×3 (05:26→22:00)
--- NOTE | 2020-09-04 05:39 | NUR ---
GPS: Remain calm and cooperative with meds and care. no agitation noted . resting in bed comfortably.
--- NOTE | 2020-09-04 06:01 | NUR ---
slept 4 hrs after restoril 7.5 mg po given.
[2020-09-04 07:30] VITALS: BP 148/51
[2020-09-04] MEDS: OXCARBAZEPINE 150 MG TABLET PO SCH ×2 (08:37→21:00)
[2020-09-04] MEDS: BENZTROPINE MESYLATE 0.5 MG TABLET PO SCH ×3 (08:38→16:37)
[2020-09-04] MEDS: risperiDONE 0.5 MG TABLET PO SCH ×3 (08:38→21:00)
--- NOTE | 2020-09-04 11:55 | NUR ---
DIEGO Individual Therapy: refractory worker met with patient for brief counseling to help address patients presenting problem aggressive behavior. Patient has been less physically aggressive but has been somewhat verbally aggressive. Patient presented with labile mood. Patient did not want to conduct therapy at this time. SW unable to conduct therapy.
[2020-09-04 15:00] VITALS: BP 137/46
[2020-09-04] MEDS: ENSURE ENLIVE (VAN) 240 ML LIQUID PO SCH (16:38)
[2020-09-04 20:03] VITALS: BP 136/52
[2020-09-04] MEDS: LORAZEPAM 0.5 MG TABLET PO PRN ×2 (21:48→22:00)
[2020-09-05] MEDS: CEphaleXIN 500 MG CAPSULE PO SCH ×3 (06:00→22:00)
--- NOTE | 2020-09-05 06:30 | NUR ---
Pt asleep at this time, no s/s of distress. No complaint of pain during the shift, no change in LOC. Episodes of being uncooperative and hyperverbal noted at night. Selectively compliant with meds. Took Ativan PRN and Temazepam PRN but refused other routine meds despite teaching and offering multiple times. Safety precautions in place. q15min checks done. Skin care and diaper change done.
[2020-09-05 07:16] LABS: HEMATOCRIT 32.2 % (31.2-41.9); MEAN CORPUSCULAR HEMOGLOBIN 31.4 uug (24.7-32.8); PLATELET COUNT (AUTO) 207 K/uL (179-408)
[2020-09-05 07:28] LABS: CREATININE 0.8 mg/dL (0.6-1.3); MAGNESIUM 2.5 mg/dL (1.8-2.4); PHOSPHOROUS 4.4 mg/dL (2.5-4.9); POTASSIUM 5.1 mmol/L (3.5-5.1)
[2020-09-05] MEDS: risperiDONE 0.5 MG TABLET PO SCH (08:00)
[2020-09-05] MEDS: ENSURE ENLIVE (VAN) 240 ML LIQUID PO SCH ×2 (09:00→17:00)
[2020-09-05] MEDS: OXCARBAZEPINE 150 MG TABLET PO SCH ×3 (09:00→17:00)
[2020-09-05] MEDS: BENZTROPINE MESYLATE 0.5 MG TABLET PO SCH ×4 (09:00→21:00)
[2020-09-05] MEDS ORDERED: OLANZAPINE 10 MG VIAL IM ONE (09:15)
--- NOTE | 2020-09-05 10:00 | NUR ---
Pt is noted to be anxious and agitated, yelling out, not able to calm down. Pt is banging on the table and being non-sensical. Pt threw a water cup at the nurse when her medicaitions were offered. Pt refused all her medications. Pt was grabbing at people passing her. pt threw a towel at another staff. Dr. Alvarez was contacted. IM Zyprexa 5 mg IM was ordered. Pt tolerated well. No distsress.
[2020-09-05 11:55] VITALS: BP 116/59
[2020-09-05] MEDS ORDERED: risperiDONE 1 MG TABLET PO SCH (13:00)
[2020-09-05 16:00] VITALS: BP 148/63
[2020-09-05] MEDS ORDERED: OLANZAPINE 10 MG VIAL IM PRN (18:15)
[2020-09-05 19:47] VITALS: BP 118/51
[2020-09-05] MEDS: risperiDONE 1 MG TABLET PO SCH (21:00)
--- NOTE | 2020-09-05 21:00 | NUR ---
Received patient in the hallway, hyperverbal, screaming, poor insight and poor judgement. Patient refused her night time medication. Patient is easily irritable. When patient was put into bed. Patient became quiet and went to sleep. Patient will remain in a psych facility for further evaluation and treatment.
[2020-09-06] MEDS: CEphaleXIN 500 MG CAPSULE PO SCH ×3 (06:00→23:07)
[2020-09-06 07:30] VITALS: BP 157/65
[2020-09-06] MEDS: ENSURE ENLIVE (VAN) 240 ML LIQUID PO SCH ×2 (09:00→17:00)
[2020-09-06] MEDS: risperiDONE 1 MG TABLET PO SCH ×2 (09:27→20:31)
[2020-09-06] MEDS: BENZTROPINE MESYLATE 0.5 MG TABLET PO SCH ×2 (09:28→20:32)
--- NOTE | 2020-09-06 11:14 | NUR ---
GPS: Nursing Notes: Severe Agitation: Patient awake and constantly shouting "I don't want to here..", constantly banging on the table, trying to scratch staff when assisting her with her ADL's, refusing to eat, overly disruptive, agitating other patients by constantly shouting, violent out burst without provocation, paranoid behavior, believes that she is going to , redirected and reoriented to reality, setting limits, but unable to be redirected, continue with restless behavior, shouting and banging and punching the table, Dr. Kim louis, continue to monitor patient for safety, continue with treatment plan.
[2020-09-06] MEDS ORDERED: OLANZAPINE 10 MG VIAL IM ONE (11:15)
--- NOTE | 2020-09-06 11:24 | NUR ---
GPS: Nursing Notes: Chemical Restraint: Patient continue with restless behavior, constantly banging and punching the table, overly disruptive by shouting, poor impulse control, paranoid behavior, believes that she is going to , redirected and reoriented to reality, setting limits, but continue to be restless, aggressive toward staff, trying to scratch and bite staff, believes that the staff is lying to her, Dr. Alvarez called and ordered: Zyprexa 5mg IM STAT for severe agitation, R=18, IM medication given at this time, continue to monitor for safety, continue with treatment plan.
--- NOTE | 2020-09-06 11:54 | NUR ---
GPS: Nursing Notes: Reassessment of Chemical Restraint: Patient is awake and responding to her name, confused, disoriented, forgetful, argumentative at times, patient became calm, medication IM was effective, R=18, continue to monitor for safety, continue with treatment plan.
[2020-09-06] MEDS: LORAZEPAM 0.5 MG TABLET PO PRN (14:16)
[2020-09-06 16:00] VITALS: BP 148/89
[2020-09-06 20:22] VITALS: BP 162/87
[2020-09-06] MEDS: TEMAZEPAM 7.5 MG CAPSULE PO PRN (20:32)
--- NOTE | 2020-09-07 05:17 | NUR ---
Shift Note: Pt is alert and oriented x2 received report from am nurse tess states" patient doesn't take medication risperdal give im injection of zyprexa. pt is sitting at nurses station and she took hs medication. pt was given a shower assisted in bed. Will endorse to am nurse.
[2020-09-07] MEDS: CEphaleXIN 500 MG CAPSULE PO SCH (05:58)
[2020-09-07 08:44] VITALS: BP 137/67
[2020-09-07] MEDS: ENSURE ENLIVE (VAN) 240 ML LIQUID PO SCH ×2 (08:54→17:02)
[2020-09-07] MEDS: BENZTROPINE MESYLATE 0.5 MG TABLET PO SCH ×2 (08:54→20:21)
[2020-09-07] MEDS: risperiDONE 1 MG TABLET PO SCH ×2 (08:54→20:21)
[2020-09-07] MEDS: busPIRone 5 MG TABLET PO SCH ×3 (11:45→17:01)
[2020-09-07 20:29] VITALS: BP 133/73
[2020-09-07] MEDS: LORAZEPAM 0.5 MG TABLET PO PRN (21:14)
--- NOTE | 2020-09-07 21:21 | NUR ---
PATIENT IS VERY AGITATED,BANGING ON THE TABLE. TALKING LOUD TO HER SELF. ATIVAN 0.5 MG PO GIVEN.
--- NOTE | 2020-09-07 22:21 | NUR ---
patient is calm now. prn for anxiety effective.
--- NOTE | 2020-09-08 06:13 | NUR ---
PS: Remain calm and cooperative with meds and care. no agitation noted . slept 7.45 hrs through the night. blood sugar 158mg/dl. no c/o pain or discomfort at this time. resting in bed comfortably. Addendum: 09/08/20 at 0625 by CHESTER SAGASTUME LVN wrong patient charting.
--- NOTE | 2020-09-08 06:25 | NUR ---
GPS: Remain calm and cooperative with meds and adl's. slept 6.45 hrs through the night. no agitation noted at this time. resting on bed comfortably. continue monitoring for safety.
[2020-09-08 07:48] VITALS: BP 148/66
[2020-09-08] MEDS: ENSURE ENLIVE (VAN) 240 ML LIQUID PO SCH ×2 (09:00→17:00)
[2020-09-08] MEDS: busPIRone 5 MG TABLET PO SCH (09:02)
[2020-09-08] MEDS: BENZTROPINE MESYLATE 0.5 MG TABLET PO SCH ×2 (09:02→20:26)
[2020-09-08] MEDS: ACETAMINOPHEN 325 MG TABLET PO PRN (09:05)
[2020-09-08] MEDS: risperiDONE 1 MG TABLET PO SCH ×2 (09:14→20:26)
[2020-09-08] MEDS: LORAZEPAM 0.5 MG TABLET PO PRN (10:53)
[2020-09-08] MEDS: levETIRAcetam 500 MG TABLET PO SCH ×2 (10:53→20:26)
--- NOTE | 2020-09-08 10:57 | NUR ---
RAPID RESPOND: INDUSTRIAL SWEEPER CLEANER Called my attention regarding the patient condition, went to patient, sitting on her chair, having some seizure , tried checking patient , unresponsive, with current vital sign 105/49 P 78, SPO2 99 room air , called rapid response, made aware, with orders of ECG, seizure medication, normal sinus rhythm ,patient became more alert and start talking, blood drawn for labs, on monitoring for seizure
[2020-09-08] MEDS ORDERED: levETIRAcetam 500 MG TABLET PO ONE (15:30)
--- NOTE | 2020-09-08 15:52 | NUR ---
patient was seen by Dr. talamantes with orders for one time Keppra 1000mg , patient confused, agitated refusing medication and tried to push away the meds, MD aware and will try to offer medication again , called and notify Dr. talamantes , will give medication later when patient is more cooperative
[2020-09-08 19:53] VITALS: BP 120/54
[2020-09-09 07:30] VITALS: BP 114/44
[2020-09-09] MEDS: ENSURE ENLIVE (VAN) 240 ML LIQUID PO SCH ×2 (09:00→16:49)
[2020-09-09] MEDS: BENZTROPINE MESYLATE 0.5 MG TABLET PO SCH ×2 (09:34→20:47)
[2020-09-09] MEDS: levETIRAcetam 500 MG TABLET PO SCH ×2 (09:34→20:47)
[2020-09-09] MEDS: LORAZEPAM 0.5 MG TABLET PO PRN (09:35)
[2020-09-09] MEDS: risperiDONE 1 MG TABLET PO SCH ×2 (09:35→20:47)
[2020-09-09 15:27] VITALS: BP 128/52
[2020-09-09 20:04] VITALS: BP 116/64
--- NOTE | 2020-09-10 06:38 | NUR ---
Received Pt in bed sleeping, irritable and angry upon waking. Pt yelled, "get the hell out of my room!" Pt is alert and oriented x2 to self and place. Pt is uncooperative and resistant to care. Pt attempted to refuse her PO medications, but eventually relented and took them after extensive prompting and encouragement from staff. Pt repeatedly stated throughout the shift that she "just wants to sleep until I'm ." When asked if she was suicidal or depressed, Pt denied and stated she is "fine". Pt is guarded and gives minimal disclosure. Pt refused HS snack and initially refused wound care to her (R) lower leg. Able to perform wound care in the morning with assistance from the SMOKE CONTROL SUPERVISOR. ADLs attended to, Z guard ordered and applied to bony prominences. VS stable, denied pain.
[2020-09-10 07:30] VITALS: BP 112/55
[2020-09-10] MEDS: levETIRAcetam 500 MG TABLET PO SCH ×2 (10:39→20:15)
[2020-09-10] MEDS: BENZTROPINE MESYLATE 0.5 MG TABLET PO SCH ×2 (10:39→20:16)
[2020-09-10] MEDS: risperiDONE 1 MG TABLET PO SCH ×2 (10:39→20:16)
[2020-09-10] MEDS: Z GUARD REMEDY PASTE 57 GM TUBE TOP SCH ×2 (10:40→20:16)
[2020-09-10] MEDS: ENSURE ENLIVE (VAN) 240 ML LIQUID PO SCH ×2 (10:40→16:28)
[2020-09-10] MEDS: LORAZEPAM 0.5 MG TABLET PO PRN (11:21)
--- NOTE | 2020-09-10 13:01 | NUR ---
This junior underwriter spoke with pharmacist about gabapentin order from home medications. Per pharmacist, gabapentin will not be restarted for seizure prophylaxis because the dosing is too low, per Dr. Tamayo.
--- NOTE | 2020-09-10 14:59 | NUR ---
DIEGO Individual Therapy: cement storage worker met with patient for brief counseling to help address patients presenting problem aggressive behavior. Patient appears guarded and does not want to conduct therapy at this time.
[2020-09-10 15:05] VITALS: BP 106/47
[2020-09-10] MEDS: CARBIDOPA/LEVODOPA 10-100MG TABLET PO SCH (16:28)
[2020-09-10 20:03] VITALS: BP 105/50
[2020-09-10] MEDS: ATORVASTATIN 40 MG TABLET PO SCH (20:15)
[2020-09-10] MEDS: TEMAZEPAM 7.5 MG CAPSULE PO PRN (21:56)
[2020-09-11 07:30] VITALS: BP 127/74
[2020-09-11] MEDS: BENZTROPINE MESYLATE 0.5 MG TABLET PO SCH ×2 (08:58→20:42)
[2020-09-11] MEDS: levETIRAcetam 500 MG TABLET PO SCH ×2 (08:58→20:42)
[2020-09-11] MEDS: risperiDONE 1 MG TABLET PO SCH ×2 (08:58→20:43)
[2020-09-11] MEDS: LORAZEPAM 0.5 MG TABLET PO PRN (08:58)
[2020-09-11] MEDS: ENSURE ENLIVE (VAN) 240 ML LIQUID PO SCH ×4 (08:59→16:29)
[2020-09-11] MEDS: CARBIDOPA/LEVODOPA 10-100MG TABLET PO SCH ×3 (09:00→16:29)
[2020-09-11] MEDS: busPIRone 5 MG TABLET PO SCH ×3 (09:00→16:29)
--- NOTE | 2020-09-11 09:07 | NUR ---
DIEGO LPS Conservator Contact: This SW contacted patient's LPS conservator, Selena Espinal ([phone]) and left a voicemail that pt will be discharged on 09/13 back to [facility].
[2020-09-11] MEDS: Z GUARD REMEDY PASTE 57 GM TUBE TOP SCH ×2 (09:20→20:44)
[2020-09-11 15:16] VITALS: BP 121/50
[2020-09-11] MEDS: ATORVASTATIN 40 MG TABLET PO SCH (20:42)
[2020-09-11] MEDS: TEMAZEPAM 7.5 MG CAPSULE PO PRN (20:43)
--- NOTE | 2020-09-11 21:00 | NUR ---
RECEIVED REPORTS FROM AM NURSE RUDY PT IS ALERT NO SIGNS OF COMBATIVE BEHAVIOR NOTED. WILL CONTINUE TO MONITOR FOR SAFETY. PT WAS RECEIVED IN BED ASKED PT IF WANTED MEDICATION CRUSH IN APPLESAUCE SHE REPLIED"YES" PT TOOK ALL MEDICATION REASSESSED PT SHE SLEEPING NO SIGNS OF RESPIRATORY DISTRESS NOTED AND NO ADVERSE REACTION FROM MEDICATION NOTED. WILL CONTINUE TO MONITOR HOURLY.
[2020-09-12 07:30] VITALS: BP 155/77
[2020-09-12] MEDS: levETIRAcetam 500 MG TABLET PO SCH ×2 (09:00→20:08)
[2020-09-12] MEDS: ENSURE ENLIVE (VAN) 240 ML LIQUID PO SCH ×3 (09:00→17:00)
[2020-09-12] MEDS: CARBIDOPA/LEVODOPA 10-100MG TABLET PO SCH ×2 (09:00→17:00)
[2020-09-12] MEDS: busPIRone 5 MG TABLET PO SCH ×3 (09:00→17:00)
[2020-09-12] MEDS: BENZTROPINE MESYLATE 0.5 MG TABLET PO SCH ×2 (09:00→20:08)
[2020-09-12] MEDS: Z GUARD REMEDY PASTE 57 GM TUBE TOP SCH ×2 (09:37→20:09)
[2020-09-12] MEDS: risperiDONE 1 MG TABLET PO SCH ×2 (09:45→20:08)
[2020-09-12] MEDS: LORAZEPAM 0.5 MG TABLET PO PRN (11:42)
[2020-09-12] MEDS: GABAPENTIN 300 MG CAPSULE PO SCH ×2 (14:00→21:10)
--- NOTE | 2020-09-12 14:30 | NUR ---
Pt refused EKG, nurse Phillip campbell..
[2020-09-12 16:00] VITALS: BP 126/56
[2020-09-12] MEDS: DOCUSATE SODIUM 100 MG CAPSULE PO SCH (17:00)
[2020-09-12] MEDS ORDERED: POLYVINYL ALCOHOL OPHT DROPS 15 ML BOTTLE EACHEYE PRN (17:00)
[2020-09-12] MEDS: MEMANTINE HCL 10 MG TABLET PO SCH (17:00)
[2020-09-12] MEDS: ATORVASTATIN 40 MG TABLET PO SCH (20:08)
[2020-09-12] MEDS: SENNOSIDES 1 TABLET PO SCH (20:08)
[2020-09-12] MEDS: TEMAZEPAM 7.5 MG CAPSULE PO PRN (21:10)
[2020-09-13] MEDS: GABAPENTIN 300 MG CAPSULE PO SCH ×4 (05:53→22:08)
[2020-09-13 07:30] VITALS: BP 135/60
--- NOTE | 2020-09-13 08:00 | NUR ---
NURSE REPORT Report obtained from night nurse Roberto at 0705 and this nurse assume care of patient. Received patient asleep without any symptoms of pain or discomfort. VSS. Afeb. Fall precautions.
[2020-09-13] MEDS: ENSURE ENLIVE (VAN) 240 ML LIQUID PO SCH ×3 (09:00→16:27)
[2020-09-13] MEDS: Z GUARD REMEDY PASTE 57 GM TUBE TOP SCH ×2 (09:00→22:08)
--- NOTE | 2020-09-13 10:00 | NUR ---
NURSE CARE When giving patient her med, she took a swing at the nurse and knock the meds crushed in applesauce. She was asked if she wanted an injection and she said "No I don''t want an injection, I will take the pills" Patient able to take meds crushed and given in apple sauce.
[2020-09-13] MEDS: DOCUSATE SODIUM 100 MG CAPSULE PO SCH ×2 (10:23→10:25)
[2020-09-13] MEDS: MULTIVIT, IRON, MIN NO. 8, FA TABLET PO SCH (10:23)
[2020-09-13] MEDS: busPIRone 5 MG TABLET PO SCH ×3 (10:23→16:26)
[2020-09-13] MEDS: CYANOCOBALAMIN 1,000 MCG TABLET PO SCH (10:24)
[2020-09-13] MEDS: MEMANTINE HCL 10 MG TABLET PO SCH ×2 (10:24→16:26)
[2020-09-13] MEDS: CHOLECALCIFEROL 1,000 UNIT TABLET PO SCH (10:24)
[2020-09-13] MEDS: LISINOPRIL 20 MG TABLET PO SCH (10:25)
[2020-09-13] MEDS: BENZTROPINE MESYLATE 0.5 MG TABLET PO SCH ×2 (10:25→22:08)
[2020-09-13] MEDS: levETIRAcetam 500 MG TABLET PO SCH ×2 (10:25→22:08)
[2020-09-13] MEDS: risperiDONE 1 MG TABLET PO SCH ×2 (10:30→22:08)
[2020-09-13] MEDS: CARBIDOPA/LEVODOPA 10-100MG TABLET PO SCH ×2 (10:30→16:28)
--- NOTE | 2020-09-13 12:04 | NUR ---
DIEGO Individual Therapy: asbestos abatement worker met with patient for brief counseling to help address patients presenting problem aggressive behavior. SW attempted to conduct therapy, however, pt was uncooperative. Pt was just banging his hands on the liliana chair and was yelling "Dr. Alvarez". SW unable to conduct therapy at this time.
--- NOTE | 2020-09-13 13:50 | NUR ---
VSS. Afeb. Patient was lethargic while the microbiological lab technician was drawing labs. 3 attempts and he was able to get blood in left AC. WBC 4.7 and RBC 3.54.
[2020-09-13 14:11] LABS: HEMATOCRIT 33.4 % (31.2-41.9); MEAN CORPUSCULAR HEMOGLOBIN 31.3 uug (24.7-32.8); MEAN CORPUSCULAR VOLUME 94.3 fL (75.5-95.3); PLATELET COUNT (AUTO) 194 K/uL (179-408)
[2020-09-13 14:19] LABS: CARBON DIOXIDE 27 mmol/L (21-32); CHLORIDE 106 mmol/L (98-107); CREATININE 0.7 mg/dL (0.6-1.3); GLUCOSE 103 mg/dL (74-106); POTASSIUM 4.1 mmol/L (3.5-5.1); UREA NITROGEN, BLOOD 19 mg/dL (7-18)
[2020-09-13 14:24] LABS: ALANINE AMINOTRANSFERASE < 6 U/L (14-59); ALKALINE PHOSPHATASE 68 U/L (50-136); ASPARTATE AMINOTRANSFERASE 11 U/L (15-37); BILIRUBIN,TOTAL 0.8 mg/dL (0.2-1.0); MAGNESIUM 2.2 mg/dL (1.8-2.4); TOTAL PROTEIN, SERUM 7.1 g/dL (6.4-8.2)
--- NOTE | 2020-09-13 16:30 | NUR ---
COVID ANTIGEN RESULT- NEG. CALLED BY LAB PERSON
--- NOTE | 2020-09-13 16:40 | NUR ---
NURSE CARE Patient brought out in hallway and placed on geriatric chair and tapping on the table as if it was drum. 5 pm meds given. Included Neurotin, since she split up the med, and meds Cogentin, Namenda and Sinemet given also. Neurotin patient had spit out and then was lethargic when laborer drying department went to draw labs. COVID-antigen done at 1543 and result negative, with lab person Jose calling result.
--- NOTE | 2020-09-13 19:45 | NUR ---
NURSE REPORT Report given to night nurse Sarah who assumed care of patient. SBAR given. All questions answered meds need to be crushed and given in apple sauce. Also patient can become aggressive at times. Alysa Rodriguez RN
[2020-09-13] MEDS: ATORVASTATIN 40 MG TABLET PO SCH (22:08)
[2020-09-13] MEDS: SENNOSIDES 1 TABLET PO SCH (22:08)
[2020-09-14 07:30] VITALS: BP 151/76
--- NOTE | 2020-09-14 07:30 | NUR ---
NURSE REPORT Report obtained from katherine nurse Sarah and this nurse assume care of patient. Patient received in hallway sitting in geriatric chair. Hitting the table. No c/o pain or discomfort. VSS. Afeb. BP 151/76.
--- NOTE | 2020-09-14 07:47 | NUR ---
DIEGO Discharge Note: Patient will be discharged to group home [facility] [address] [place] [address]; ([phone]) via ambulance at 1PM. Picked Edge Sewing Machine Operator spoke with Wendi penaer at [facility] ([phone]) who stated patient will be accepted at facility today. Patients SHANELL Conservannika Walters ([phone]) is aware and agreeable. Patient is alert and oriented x1 and is not able to plan for self-care at this time but is willing to accept care provided for her at the facility. Patient denies suicidal or homicidal ideation. Patient is aware and agreeable with discharge plans. Patient will follow-up with (Psychiatrist) Dr. Alvarez and (Health Professional) Dr. Rodriguez at [facility]. Patient presented with euthymic mood and congruent affect. Addendum: 09/14/20 at 0821 by DIEGO DEJESUS Cancel discharge due to patient being aggressive.
[2020-09-14] MEDS: MULTIVIT, IRON, MIN NO. 8, FA TABLET PO SCH (08:11)
[2020-09-14 08:12] VITALS: BP 151/76
[2020-09-14] MEDS: CHOLECALCIFEROL 1,000 UNIT TABLET PO SCH (08:12)
[2020-09-14] MEDS: CYANOCOBALAMIN 1,000 MCG TABLET PO SCH (08:12)
[2020-09-14] MEDS: LISINOPRIL 20 MG TABLET PO SCH (08:12)
[2020-09-14] MEDS: levETIRAcetam 500 MG TABLET PO SCH (08:13)
[2020-09-14] MEDS: BENZTROPINE MESYLATE 0.5 MG TABLET PO SCH (08:13)
[2020-09-14] MEDS: MEMANTINE HCL 10 MG TABLET PO SCH (08:13)
[2020-09-14] MEDS: risperiDONE 1 MG TABLET PO SCH (08:14)
[2020-09-14] MEDS: busPIRone 5 MG TABLET PO SCH (08:14)
[2020-09-14] MEDS: DOCUSATE SODIUM 100 MG CAPSULE PO SCH (08:23)
[2020-09-14] MEDS: ENSURE ENLIVE (VAN) 240 ML LIQUID PO SCH (08:33)
[2020-09-14] MEDS: CARBIDOPA/LEVODOPA 10-100MG TABLET PO SCH (08:33)
[2020-09-14] MEDS: Z GUARD REMEDY PASTE 57 GM TUBE TOP SCH (08:38)
--- NOTE | 2020-09-14 13:25 | NUR ---
DISCHARGE INSTRUCTIONS Discharge instructions not able to be given to patient, since confused. Report given to Dustin at [facility] at 1315, and ambulance took aptient via gurney at 1325. Alert and oriented x 2-3. Ambulance personnel asked her questions and she was oriented x 3. No c/o pain or discomfort. Patient has been as resident of [facility]. Discharge instructions and paperwork in envelope. Patient isn't able to sign the form for discharge instructions.
== END 2020-09-14 13:30 | DRG 885 ==
LOC: ER 23:21 → GPS 08-31 03:38
PROVIDERS: ADMIT Psychiatry & Neurology Psychosomatic Medicine; ATTEND Nurse Practitioner Acute Care
DX: F25.9 Schizoaffective disorder, unspecified (principal); F01.50 Vascular dementia, unspecified severity, without behavioral disturbance, psychotic disturbance, mood disturbance, and anxiety; N17.0 Acute kidney failure with tubular necrosis; E87.0 Hyperosmolality and hypernatremia; N39.0 Urinary tract infection, site not specified; Z68.1 Body mass index [BMI] 19.9 or less, adult; E03.9 Hypothyroidism, unspecified; E78.5 Hyperlipidemia, unspecified; G20 Parkinson's disease; E86.0 Dehydration; D64.9 Anemia, unspecified; F43.10 Post-traumatic stress disorder, unspecified; G25.0 Essential tremor; G40.909 Epilepsy, unspecified, not intractable, without status epilepticus; I10 Essential (primary) hypertension; M17.12 Unilateral primary osteoarthritis, left knee; G89.29 Other chronic pain; R62.7 Adult failure to thrive; Z20.822 Contact with and (suspected) exposure to COVID-19; F03.90 Unspecified dementia, unspecified severity, without behavioral disturbance, psychotic disturbance, mood disturbance, and anxiety; F41.9 Anxiety disorder, unspecified; Z91.5 Personal history of self-harm; Z79.899 Other long term (current) drug therapy; Z91.19 Patient's noncompliance with other medical treatment and regimen; R73.9 Hyperglycemia, unspecified
CPT/HCPCS: 36415; 70450; 71045; 83735; 84100; 85025; 87086; 93005; A4663; G0480; J0696; J1200; J1630; J2060; J2358; J7030